=== PATIENT | female | born 1965 | race Caucasian/White ===

== ENCOUNTER → 2019-11-27 | Day surgery (SDC) | payer OTHER ==
[~2019-11-27] MED LIST: ACETAMINOPHEN 1000 MG/100 ML IV ONE; BUPIVACAINE 0.5%/EPI 30 ML SDV INJ ONE; BUPIVACAINE HCL 0.5% INJ 30 ML VIAL INJ ONE; CEFAZOLIN SOD 1 GM/NS 50ML 100 ML IV ONE; DEXAMETHASONE SOD PHOS INJ 4 MG/ML VIAL ONE; FENTANYL CITRATE/PF 100MCG/2 ML INJ ONE; LIDOCAINE HCL 2% LOCAL INJ 5 ML SDV VIAL INJ ONE; MELOXICAM7.5 MG PO; MIDAZOLAM HCL 2 MG/2 ML VIAL ONE; ONDANSETRON HCL INJ 2MG/ML 2ML 2 MG/ML VIAL ONE; PROPOFOL IV EMULSION 10 MG/ML 20 ML VIAL ONE; SEVOFLURANE INHAL SOLN 250 ML PEN BTL ONE
[2019-11-27 15:00] VITALS: BP 126/77
--- NOTE | 2019-11-29 13:51 | Operative Report ---
DATE OF PROCEDURE: 11/27/2019 SURGEON: Tanmay Reinoso MD PREOPERATIVE DIAGNOSES: Right knee medial meniscus tear, right knee lateral meniscus tear, and right knee degenerative joint disease of the knee. POSTOPERATIVE DIAGNOSES: Right knee medial meniscus tear, right knee lateral meniscus tear, and right knee degenerative joint disease of the knee. OPERATIONS AND PROCEDURES PERFORMED: The patient underwent right knee examination under anesthesia, right knee arthroscopy, right knee partial medial meniscectomy, right knee partial lateral meniscectomy, right knee chondroplasty of the patella, trochlea, the medial femoral condyle, medial tibial plateau, the lateral femoral condyle, and lateral tibial plateau. KNOT TIER: MERI Chou. ANESTHESIA: General endotracheal intubation anesthesia. IV FLUIDS: Per anesthesia record. BRIEF DESCRIPTION OF THE PATIENT'S OPERATIVE PROCEDURE: Ms. Ontiveros was taken to the operating room and placed in the supine position on the operating table. Following induction of general anesthesia as well as endotracheal intubation, the patient's right lower extremity was examined under anesthesia. She was found to have a mild effusion within the knee joint, but otherwise ligamentously stable knee. The patient's lower extremity was prepped and draped in standard surgical fashion. A two-port technique used to provide this patient's arthroscopic evaluation of the knee joint. Examination of the suprapatellar pouch, medial and lateral gutters found no evidence of loose bodies. There was, however, evidence of chondromalacia of the patellar and trochlear surfaces. The scope was advanced to medial compartment. Examination of the medial compartment demonstrated a torn medial meniscus. There was also a chondromalacia of the articulating surfaces. A combination of biting forceps and motorized shaver were used to resect the torn portion of meniscus. Chondroplasties of the medial femoral condyle and medial tibial plateau performed at this time. Scope was then advanced to the intercondylar notch. The anterior cruciate ligament was identified and found to be intact. The scope was then advanced to lateral compartment and a tear of the lateral meniscus was encountered. There was also chondromalacia of the articulating surfaces. A combination of biting forceps and motorized shaver were used to resect the torn portion of meniscus. Chondroplasties of the lateral femoral condyle and lateral tibial plateau are performed at this time. Scope was then advanced to suprapatellar pouch and chondroplasty of the patellar and trochlear were performed. The knee was deflated with sterile normal saline. Each of the portal sites were closed using 4-0 nylon suture. The portal sites as well as knee itself were injected with 0.5% Marcaine with epinephrine. Sterile dressings were applied. The patient was awakened and taken to postanesthesia care in stable condition. MD KEKE Del Toro/[facility] /[id number]
== END | disposition home or self-care (01) ==
LOC: OR 10:17
PROVIDERS: ATTEND Specialist
DX: S83.221A Peripheral tear of medial meniscus, current injury, right knee, initial encounter (principal); S83.261A Peripheral tear of lateral meniscus, current injury, right knee, initial encounter; M17.11 Unilateral primary osteoarthritis, right knee; M22.41 Chondromalacia patellae, right knee; Z01.810 Encounter for preprocedural cardiovascular examination; Z68.30 Body mass index [BMI] 30.0-30.9, adult
CPT/HCPCS: 29880; 93005; J0131; J0690; J1100; J2001; J2250; J2405; J2704; J3010

== ENCOUNTER 2019-12-25 11:00 | Outpatient (RCR) | payer OTHER ==
[~2019-12-25 11:00] MED LIST changes: -ACETAMINOPHEN 1000 MG/100 ML IV ONE; -BUPIVACAINE 0.5%/EPI 30 ML SDV INJ ONE; -BUPIVACAINE HCL 0.5% INJ 30 ML VIAL INJ ONE; -CEFAZOLIN SOD 1 GM/NS 50ML 100 ML IV ONE; -DEXAMETHASONE SOD PHOS INJ 4 MG/ML VIAL ONE; -FENTANYL CITRATE/PF 100MCG/2 ML INJ ONE; -LIDOCAINE HCL 2% LOCAL INJ 5 ML SDV VIAL INJ ONE; -MIDAZOLAM HCL 2 MG/2 ML VIAL ONE; -ONDANSETRON HCL INJ 2MG/ML 2ML 2 MG/ML VIAL ONE; -PROPOFOL IV EMULSION 10 MG/ML 20 ML VIAL ONE; -SEVOFLURANE INHAL SOLN 250 ML PEN BTL ONE
== END 2020-01-08 ==
LOC: PT 11:00
PROVIDERS: ATTEND Specialist
DX: M17.11 Unilateral primary osteoarthritis, right knee (principal)

== ENCOUNTER → 2020-08-08 | Outpatient (CLI) | payer OTHER | END | disposition home or self-care (01) | LOC: MRI 12:44 | PROVIDERS: ATTEND Family Medicine | DX: S82.092A Other fracture of left patella, initial encounter for closed fracture (principal); S83.232A Complex tear of medial meniscus, current injury, left knee, initial encounter; M71.22 Synovial cyst of popliteal space [Baker], left knee; M25.462 Effusion, left knee; W19.XXXA Unspecified fall, initial encounter ==